=== PATIENT | female | born 1985 | race Caucasian/White ===

== ENCOUNTER 2020-09-02 16:03 | Emergency (ER) | payer MEDICAID ==
[~2020-09-02] VITALS: Ht 160 cm; Wt 59.0 kg
[2020-09-02 16:42] VITALS: BP 138/86
== END 2020-09-02 16:45 | disposition home or self-care (01) ==
LOC: ER 16:03
DX: R21 Rash and other nonspecific skin eruption (principal)
CPT/HCPCS: 99281

== ENCOUNTER 2020-09-08 15:05 | Emergency (ER) | payer MEDICAID, OTHER ==
[~2020-09-08] VITALS: Ht 152.4 cm; Wt 59.0 kg
[2020-09-08] MEDS ORDERED: DIPHENHYDRAMINE 25MG CAPSULE PO ONE (17:00)
[2020-09-08 17:20] VITALS: BP 130/78
== END 2020-09-08 17:20 | disposition home or self-care (01) ==
LOC: ER 15:05
DX: L20.9 Atopic dermatitis, unspecified (principal); Z98.890 Other specified postprocedural states
CPT/HCPCS: 99282; Q0163